=== PATIENT | female | born 1955 | race Caucasian/White ===

== ENCOUNTER → 2019-07-23 | Outpatient (CLI) | payer OTHER ==
[~2019-07-23] MED LIST: ATEN25 PO; B12 5000 MCG SL; FISH OIL + D31 EACH PO; Multivitamin1 EAC1 PO; Stool Soft & S1 EACH PO; VITAMIN D2400 UNIT PO; Vitamin E100 UNIT PO
== END ==
LOC: LAB EV 14:19 → LAB SHORT 14:19
DX: N39.0 Urinary tract infection, site not specified (principal)
CPT/HCPCS: 87077; 87086; 87186

== ENCOUNTER → 2022-07-26 | Outpatient (CLI) | payer BC | END | disposition home or self-care (01) | LOC: LAB 17:27 → LAB SHORT 17:27 | DX: N39.0 Urinary tract infection, site not specified (principal) | CPT/HCPCS: 87077; 87086; 87186 ==

== ENCOUNTER → 2023-06-28 | Outpatient (CLI) | payer BC | END | disposition home or self-care (01) | LOC: LAB SHORT 10:40 → LAB 10:40 | DX: N39.0 Urinary tract infection, site not specified (principal) | CPT/HCPCS: 87077; 87086; 87186 ==

== ENCOUNTER → 2023-10-05 | Outpatient (CLI) | payer BC | END | disposition home or self-care (01) | LOC: LAB SHORT 17:14 → LAB 17:14 | DX: N39.0 Urinary tract infection, site not specified (principal) | CPT/HCPCS: 87077; 87086; 87186 ==

== ENCOUNTER → 2024-01-23 | Outpatient (CLI) | payer BC | LOC: LAB SHORT 11:39 → LAB 11:39 | DX: I16.0 Hypertensive urgency (principal); R53.83 Other fatigue ==